=== PATIENT | female | born 1970 | race Hispanic/Latino ===

== ENCOUNTER 2018-05-05 17:34 | Emergency (ER) | payer SELFPAY ==
[~2018-05-05] VITALS: Ht 172.7 cm; Wt 92.5 kg
[~2018-05-05 17:34] MED LIST: URELLE PO; Z.0.ESIDRIX25 MG PO
--- OUTSIDE RECORDS SUMMARY | 2018-05-05 17:37 | XMS REPORT ---
Author Author [facility] Address Unknown Phone Unavailable Care Team Providers Care Natural Fabricator Name Role Phone ISHA EDGAR Unavailable Unavailable TORIBIO WONG Unavailable Unavailable Sawyer EATON Unavailable Unavailable Problems This patient has no known problems. Allergies, Adverse Reactions, Alerts This patient has no known allergies or adverse reactions. Medications This patient has no known medications. Results Test Description Test Time Test Comments Text Results Atomic Results Result Comments OUTSIDE CONSULTATION 2016-08-17 18:14:00 Surgical Pathology Report Case: [id number] Authorizing Provider: Violeta Wong MD Collected: 07/30/2016 1240 Ordering Location: [facility] Laboratory Received: 07/30/2016 1244 Pathologist: Vicente Granados MD Specimen: Biopsy, Liver, Received 4 slides from [facility] label [id number] OUTSIDE SLIDES, [id number], NEEDLE BIOPSIES OF LIVER MASS, (DATE OF PROCEDURE 12/11/2015): - CIRRHOSIS - STEATOHEPATITIS - NEGATIVE FOR MALIGNANCY The non-alcoholic steatohepatitis (BUD) activity scoring is performed according to guidelines from non-alcoholic steatohepatitis, clinical research network (Sadiq, et al. Hepatology 2005. 41:1313-21), at the request of the clinicianThe BUD score is: Steatosis: Grade 2 + lobular inflammation, grade 1 + hepatocyte ballooning score 1=4/8. The fibrosis score is 4 of 4.The case was discussed at the weekly liver biopsy conference held in the [facility] at [facility] on July 30, 2016. One HE stained slide is retained for our records.[id number] secondary to FOREMAN, liver lesion, and renal cell carcinoma status post right partial nephrectomyOutside slides, [id number], liver needle core biopsy, date of procedure 12/11/2015, received from The Department of Pathology, [facility], [address] [place] [address], [facility] [place] [facility] [address].Received four glass slides (2 HE, 1 trichrome, 1 PAS (D)), each labeled [id number], along with the pathology report.Section shows one long core and two tiny cores of liver parenchyma and is adequate for evaluation. Trichrome stain shows distortion of architecture with bridging fibrosis and nodule formation. Focal pericellular fibrosis is present. The fibrous septa show prominent cholangiolar proliferation and mild chronic lymphocyte predominant inflammation. No significant interface hepatitis is noted. The bile ducts appear preserved. No periductal inflammation, granulomas or bile duct scars are seen. There is mild steatosis, predominantly macrovesicular type admixed with microvesicular steatosis, involving almost 40% of liver parenchyma. Rare ballooning degeneration is seen. Mild lobular inflammation is present. No hyaline globules are seen on PAS with diastase stain. No malignancy is seen. HEPATITIS B CORE ANTIBODY, TOTAL 2016-07-13 18:13:00 HEPATITIS B CORE TOTAL ANTIBODY (BEAKER) (test vfpv=464) Reactive Nonreactive HEPATITIS B SURFACE [id number] 18:08:00* Test Item Value Reference Range Comments HEPATITIS B SURFACE ANTIBODY (BEAKER) (test jtgk=551) 100.4 mIU/mL <8.0 HEPATITIS A ANTIBODY, [id number] 18:08:00* Test Item Value Reference Range Comments HEPATITIS A IGG ANTIBODY (BEAKER) (test yota=5966) Nonreactive Nonreactive COMPREHENSIVE METABOLIC [id number] 17:53:00* Test Item Value Reference Range Comments TOTAL PROTEIN (BEAKER) (test gkcs=034) 7.5 gm/dL 6.0-8.3 ALBUMIN (BEAKER) (test pchj=4946) 4.2 g/dL 3.5-5.0 ALKALINE PHOSPHATASE (BEAKER) (test odff=922) 63 U/L 40-150 BILIRUBIN TOTAL (BEAKER) (test cbmr=032) 0.6 mg/dL 0.2-1.2 SODIUM (BEAKER) (test vsbq=637) 141 meq/L 136-145 POTASSIUM (BEAKER) (test vwfb=036) 3.2 meq/L 3.5-5.1 CHLORIDE (BEAKER) (test tukl=051) 104 meq/L 98-107 CO2 (BEAKER) (test okan=368) 29 meq/L 22-29 BLOOD UREA NITROGEN (BEAKER) (test pvgo=178) 11 mg/dL 7-21 CREATININE (BEAKER) (test aoqn=898) 0.71 mg/dL 0.57-1.25 GLUCOSE RANDOM (BEAKER) (test dwox=468) 81 mg/dL 70-105 CALCIUM (BEAKER) (test wwtw=538) 9.1 mg/dL 8.4-10.2 AST (SGOT) (BEAKER) (test prap=641) 25 U/L 5-34 ALT (SGPT) (BEAKER) (test damt=743) 25 U/L 6-55 EGFR (BEAKER) (test jobd=3088) 89 mL/min/1.73 sq m ESTIMATED GFR IS NOT ACCURATE CREATININE CLEARANCE IN PREDICTING GLOMERULAR FILTRATION RATE. ESTIMATED GFR IS NOT APPLICABLE FOR DIALYSIS PATIENTS. BILIRUBIN, [id number] 17:53:00* Test Item Value Reference Range Comments BILIRUBIN DIRECT (BEAKER) (test ioyg=455) 0.2 mg/dL 0.1-0.5 PROTHROMBIN TIME/[id number] 17:22:00* Test Item Value Reference Range Comments PROTIME (BEAKER) (test shcj=687) 13.0 seconds 11.7-14.7 INR (BEAKER) (test awbs=883) 1.0 <=5.9 RECOMMENDED COUMADIN/WARFARIN INR THERAPY RANGESSTANDARD DOSE: 2.0 - 3.0 Inclu yesi: PROPHYLAXIS for venous thrombosis, systemic embolization; TREATMENT for april ous thrombosis and/or pulmonary embolus.HIGH RISK: Target INR is 2.5-3.5 for pat ients with mechanical heart valves.CBC W/PLT COUNT & AUTO [id number] 17:19:00* Test Item Value Reference Range Comments WHITE BLOOD CELL COUNT (BEAKER) (test ceht=515) 10.6 K/ L 4.0-10.0 RED BLOOD CELL COUNT (BEAKER) (test wnua=951) 4.78 M/ L 4.00-5.00 HEMOGLOBIN (BEAKER) (test miwi=230) 13.5 GM/DL 12.0-15.0 HEMATOCRIT (BEAKER) (test qreq=041) 41.6 % 36.0-45.0 MEAN CORPUSCULAR VOLUME (BEAKER) (test aizv=689) 87.1 fL 82.0-99.0 MEAN CORPUSCULAR HEMOGLOBIN (BEAKER) (test bbqy=450) 28.3 pg 27.0-33.0 MEAN CORPUSCULAR HEMOGLOBIN CONC (BEAKER) (test ndpx=504) 32.5 GM/DL 32.0-36.0 RED CELL DISTRIBUTION WIDTH (BEAKER) (test dyyf=579) 13.8 % 10.3-14.2 PLATELET COUNT (BEAKER) (test iqiy=259) 211 K/CU MM 150-430 MEAN PLATELET VOLUME (BEAKER) (test qizt=527) 8.0 fL 6.5-10.5 NUCLEATED RED BLOOD CELLS (BEAKER) (test woeo=786) 0 /100 WBC 0-0 NEUTROPHILS RELATIVE PERCENT (BEAKER) (test tedb=564) 50 % LYMPHOCYTES RELATIVE PERCENT (BEAKER) (test frue=497) 41 % MONOCYTES RELATIVE PERCENT (BEAKER) (test wecz=133) 5 % EOSINOPHILS RELATIVE PERCENT (BEAKER) (test gfqa=446) 2 % BASOPHILS RELATIVE PERCENT (BEAKER) (test rszq=185) 1 % NEUTROPHILS ABSOLUTE COUNT (BEAKER) (test ijkv=139) 5.34 K/ L 1.80-8.00 LYMPHOCYTES ABSOLUTE COUNT (BEAKER) (test ukft=425) 4.39 K/ L 1.48-4.50 MONOCYTES ABSOLUTE COUNT (BEAKER) (test sarj=551) 0.57 K/ L 0.00-1.30 EOSINOPHILS ABSOLUTE COUNT (BEAKER) (test qecu=105) 0.25 K/ L 0.00-0.50 BASOPHILS ABSOLUTE COUNT (BEAKER) (test zgde=113) 0.08 K/ L 0.00-0.20 0.00US TRANSVAGINAL [place] [address] Patient Name: VIRGIL PENN MR #: [id number] : 1970 Age/Sex: 46/F Req #: [id number] Adm Physician: Ordered by: WANDER LÓPEZ Report #: [id number] Location: Room/Bed: Procedure: [id number] US/US TRANSVAGINAL Ex am Date: 01/23/17 Exam Time: 1714 REPORT STATUS : Signed EXAM: US TRANSVAGINAL DATE: 01/23/2017 12:00 AM INDICATION: Vaginal bleeding COMPARISON: None FINDINGS: Transabdominal and gongora svaginal pelvic ultrasound performed. Uterus measures 90 x 57 x 60 mm. Endomet rial stripe measures 7 mm. Nabothian cysts present. Left ovary is poorly evalu ated, largely secured by bowel gas. Right ovary is sonographically unremarkabl e measuring 27 x 22 x 16 mm. Trace free fluid only identified in the pelvis. IMPRESSION: Essentially unremarkable pelvic ultrasound for age. Left ovary suboptimally evaluated due to overlying bowel gas. Signed by: Dr. Yesica Pacehco MD on 01/23/2017 6:05 PM Dictated By: YESICA urbano Signed By: YESICA PACHECO MD on 01/23/171804 Transcribed By: GARRISON on 01/23/171804 COPY TO: WANDER LÓPEZ
--- OUTSIDE RECORDS SUMMARY | 2018-05-05 17:37 | XMS REPORT | Clinical Summary ---
Author Author [facility] Address Unknown Phone Unavailable Care Team Providers Care Aviation Maintenance Technician Name Role Phone Sharpless PCP Allergies Comments Active Allergy Reactions Severity Noted Date Erythromycin Estolate Hives High 05/02/2008 Fever,Paralysis Penicillins Other (See High 05/02/2008 Comments) Medications End Date Status Medication Sig Dispensed Refills Start Date Active apremilast 30 mg Tab Take 30 mg by 0 mouth 2 (two) times daily. Active amlodipine-benazepril TK 1 C PO QD 0 (LOTREL) 10-20 mg per in the 6 capsule morning - DO NOT TAKE THE MORNING OF SURGERY Active Problems Problem Noted Date FOREMAN (nonalcoholic steatohepatitis) 07/20/2016 Last Assessment & Plan: Her risk factor for FOREMAN is obesity. We discussed the importance of weight loss with a low carbohydrate, high protein diet. Renal cell carcinoma of right kidney 07/20/2016 Last Assessment & Plan: She is s/p partial nephrectomy of her right kidney on 02/11/2016. Continue follow-up with urology. Liver masses 07/13/2016 Last Assessment & Plan: MRI from April 2016 reports a cyst and a hemangioma in the right lobe. These are considered benign lesions. Routine follow-up in 6 months. Immunity status testing 07/13/2016 Last Assessment & Plan: All patients with chronic liver disease, regardless of etiology, should be immunized to prevent hepatitis A and hepatitis B if they are not already immune. We will test for immunity to both viruses - vaccine recommendations will follow. History of renal cell carcinoma and partial right nephrectomy 07/13/2016 Last Assessment & Plan: History of renal cell carcinoma with right partial nephrectomy. Screening for malignant neoplasm 07/13/2016 Last Assessment & Plan: Cirrhosis is a significant risk factor for development of hepatocellular carcinoma. Recent evidence also suggests a risk of HCC in patients with stage 3 fibrosis on liver biopsy. We recommend surveillance for HCC be performed using imaging and alphafetoprotein every 6 months. Her last MRI in April 2016 reported no suspicious lesions. Screening for Esophageal varices 07/13/2016 Last Assessment & Plan: All patients with portal hypertension should be screened for gastroesopahgeal varices and/or portal hypertensive gastropathy. She had an EGD in January 2016 - we will request the report. 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 The most likely etiology of her cirrhosis is FOREMAN. Blood work to evaluate for other metabolic, genetic, autoimmune and viral causes of liver disease ordered today. Despite advanced fibrosis, the synthetic function of her liver is well preserved. Obesity (BMI 30-39.9) 07/13/2016 Last Assessment & Plan: Body mass index is 31.31 kg/(m^2). We discussed the importance of weight loss with a low carbohydrate, high protein diet. Essential hypertension 07/13/2016 Family History Medical History Relation Name Comments Heart disease Brother Cancer Father Hypertension Mother Relation Name Status Comments Brother Father Mother Social History Date Tobacco Use Types Packs/Day Years Used Never Smoker Alcohol Use Drinks/Week oz/Week Comments Yes Social Sex Assigned at Date Recorded Not on file Industry Job Start Date Occupation Not on file Not on file Not on file Travel End Travel History Travel Start No recent travel history available. Last Filed Vital Signs Not on file Plan of Treatment Health Maintenance Due Date Last Done Comments INFLUENZA VACCINE 11/21/2017 Results Not on fileafter 05/04/2017 Insurance Payer Benefit Subscriber ID Type Phone Address Plan / Group C[employer] - MGD CARE CIGNA xxxxxxxxxxx HMO/POS HMO/POS/OP EN ACCESS
--- OUTSIDE RECORDS SUMMARY | 2018-05-05 17:37 | XMS REPORT | Clinical Summary ---
Author Author [facility] Address Unknown Phone Unavailable Care Team Providers Care Solar Field Service Technician Name Role Phone Piedad Kenny MD PCP Allergies Comments Active Allergy Reactions Severity Noted Date Sulfamethoxazole-Trimetho Swelling Medium 02/20/2017 prim Erythromycin Rash Low 12/11/2015 Paralysis Penicillins Other (See 11/24/2015 Comments) Medications End Date Status Medication Sig Dispensed Refills Start Date Active amlodipine-benazepril TK 1 C PO QD 2 (LOTREL) 10-20 mg per in the 6 capsule morning - DO NOT TAKE THE MORNING OF SURGERY Active Problems Problem Noted Date Rectus sheath hematoma 02/20/2017 Lesion of right lobe of liver 02/08/2017 History of renal cell carcinoma 07/13/2016 Overview: Last Assessment & Plan: History of renal cell carcinoma with right partial nephrectomy. Essential hypertension 07/13/2016 Obesity (BMI 30-39.9) 07/13/2016 Overview: Last Assessment & Plan: Body mass index is 31.31 kg/(m^2). We discussed the importance of weight loss with a low carbohydrate, high protein diet. Immunity status testing 07/13/2016 Overview: Last Assessment & Plan: All patients with chronic liver disease, regardless of etiology, should be immunized to prevent hepatitis A and hepatitis B if they are not already immune. We will test for immunity to both viruses - vaccine recommendations will follow. 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 The most likely etiology of her cirrhosis is FOREMAN. Blood work to evaluate for other metabolic, genetic, autoimmune and viral causes of liver disease ordered today. Despite advanced fibrosis, the synthetic function of her liver is well preserved. Family History Medical History Relation Name Comments Heart disease Brother No Known Problems Mother Relation Name Status Comments Brother Father Alive Mother Alive Social History Date Tobacco Use Types Packs/Day Years Used Never Smoker Smokeless Tobacco: Never Used Alcohol Use Drinks/Week oz/Week Comments Yes OCCASIONAL/RARE Sex Assigned at Date Recorded Not on file Industry Job Start Date Occupation Not on file Not on file Not on file Travel End Travel History Travel Start No recent travel history available. Last Filed Vital Signs Not on file Plan of Treatment Health Maintenance Due Date Last Done Comments CERVICAL CANCER SCREENING 1990 INFLUENZA VACCINE 09/21/2017 Implants Device Identifier Shelf Expiration Date Model / Serial / Lot Implanted Type Area Manufactur er [id number] / / Hemostat Absrbl 4x4in Surgicel Snow Cardiovasc N/A: N/A [employer] - [id number] ular - Implanted: 02/11/2016 (Quantity not Implants on file) 12/21/2018 [id number] / / [id number] Device Vasclr Clsr Baln Cath 10ml Cardiovasc N/A: N/A ACCESS Lkng Syr 5fr Roche Mynxgrip - ular CLOSURE [id number] Implants INC Implanted: 02/20/2017 (Quantity not on file) [id number] / / Clip Ligtng Hem-O-James Endoscpc Aplr Surgical N/A: N/A [facility] - [id number] Implants; CLOSURE Implanted: 02/11/2016 (Quantity not Expanders; SYSTEMS on file) Extenders; Surgical Wires [id number] / / Catheter Angio Airport Ramp Supervisor Ii 5fr 65cm Surgical N/A: N/A [facility] [employer] Torque Delong - [id number] Implants; PERIPHERAL Implanted: 02/20/2017 (Quantity not Expanders; INTERVENTI on file) Extenders; ON Surgical VASCULAR Wires VIOLETTA [id number] / / Pusher Coil 195cm 50cm 0.016in Vascular N/A: N/A MICRUS 0.017in 0.021in Ptfe Byron - Coil CORPORATIO [id number] Implanted: 02/20/2017 (Quantity not on file) Results Not on fileafter 05/04/2017 Insurance Payer Benefit Subscriber ID Type Phone Address Plan / Group JACINDA MONACO OPEN xxxxxxxxxxx HMO ACCESS/NET WORK Guarantor Name Account Relation to Date of Phone Billing Address Type Patient Chaparrita Sumner Personal/F Self 1970 [address] [place] [address] Advance Directives Patient has advance care planning documents, and code status on file. For more i nformation, please contact: Louis Amador [address] [place] [address] Date Inactivated Comments Code Status Date Activated 02/23/2017 5:10 PM Full Code 02/23/2017 11:22 AM Code Status decision reached by: Patient 02/13/2016 1:11 PM Full Code 02/11/2016 2:39 PM Code Status decision reached by: Patient
[2018-05-05] MEDS ORDERED: IBUPROFEN 600 MG TAB PO STA (18:44)
--- NOTE | 2018-05-05 19:02 | Diagnostic Imaging Report ---
EXAMINATION: CXR 2 VIEW - HOPD INDICATION: Flulike symptoms. Bodyaches. COMPARISON: None FINDINGS: TUBES and LINES: None. LUNGS: Lungs are well inflated. Lungs are clear. There is no evidence of pneumonia or pulmonary edema. PLEURA: No pleural effusion or pneumothorax. HEART AND MEDIASTINUM: The cardiomediastinal silhouette is unremarkable. BONES AND SOFT TISSUES: No acute osseous lesion. Soft tissues are unremarkable. UPPER ABDOMEN: No free air under the diaphragm. IMPRESSION: No acute thoracic abnormality. Signed by: Dr. Obey Hirsch M.D. on 05/05/2018 6:59 PM
[2018-05-05] MEDS ORDERED: SODIUM CHLORIDE 0.9% 1000ML 1,000 ML IV STA (19:05)
[2018-05-05] MEDS ORDERED: IBUPROFEN 200 MG TAB PO STA (19:05)
[2018-05-05] MEDS ORDERED: HYDROCODONE/APAP 7.5MG-325MG 1 EA TAB PO ONE (19:15)
[2018-05-05] MEDS ORDERED: HYDROCODONE/APAP 5MG-325MG TAB PO ONE (19:15)
[2018-05-05] MEDS ORDERED: ONDANSETRON HCL INJ 2MG/ML 2ML 2 MG/ML VIAL IV ONE (19:15)
[2018-05-05] MEDS ORDERED: CLONIDINE HCL 0.2 MG TAB PO ONE (19:15)
[2018-05-05] MEDS ORDERED: FAMOTIDINE 20 MG/2 ML VIAL IV ONE (19:15)
[2018-05-05 20:05] VITALS: BP 154/77
== END 2018-05-05 20:22 | disposition home or self-care (01) ==
LOC: FSED 17:34
DX: R50.9 Fever, unspecified (principal); R05 Cough; J00 Acute nasopharyngitis [common cold]; J30.2 Other seasonal allergic rhinitis
CPT/HCPCS: 71046; 81003; 99284; J2405; J7030